=== PATIENT | male | born 1965 | race African-American/Black ===

== ENCOUNTER → 2017-12-01 | Outpatient (CLI) | payer MEDICAID ==
[~2017-12-01] MED LIST: ALBU0.08 NEB; AMLO10 PO; ATOR20TA15 PO; CLON0.1T PO; FLUT1INH7 INH; HYDR12.56 PO; IPRASOL INH; PRED10PA PO; RANI150T PO; TIOT12.9 INH; VENTAER INH
--- NOTE | 2017-12-01 15:13 | RADRPT ---
EXAM DATE/TIME: 12/01/2017 11:08 [place] COMPARISON: No previous studies available for comparison. INDICATIONS : wheezing and short of breath MEDICAL HISTORY : Asthma SURGICAL HISTORY : None. ENCOUNTER: Initial ACUITY: 2 weeks PAIN SCORE: 0/10 LOCATION: chest FINDINGS: PA and lateral views of the chest demonstrate a normal-sized cardiac silhouette. There is no effusion , consolidation, or pneumothorax. The bones and soft tissues demonstrate no acute abnormality. CONCLUSION: No acute cardiopulmonary abnormality is identified. Abhijit Krause MD on December 01, 2017 at 15:09 Board Certified Radiologist. This report was verified electronically.
--- NOTE | 2017-12-05 11:10 | RSPPFT ---
DATE OF PROCEDURE: 12/01/17 COMMENTS: Spirometry with FVC of 1.9, FEV1 of 0.6, FEV1/FVC ratio at 31%. A positive and significant response to acutely inhaled bronchodilator noted. Room air arterial blood gas shows pH of 7.41, PCO2 of 39, PO2 of 51. Slow vital capacity at 33% of predicted. TLC is 75%. Diffusion capacity is 70% of predicted and normal when corrected for alveolar volume. IMPRESSION: 1. Severe airways obstruction. 2. Associated restrictive component. 3. Reduced diffusion capacity and normal when related to alveolar volume. 4. Hypoxic respiratory failure. 5. Positive and significant response to inhaled bronchodilator.
== END ==
LOC: HRSP 09:48
PROVIDERS: ATTEND Internal Medicine Sleep Medicine
DX: R06.09 Other forms of dyspnea (principal); R06.2 Wheezing
CPT/HCPCS: 36600; 71046; 82805; 94060; 94726; 94729